=== PATIENT | male | born 1945 | race Caucasian/White ===

== ENCOUNTER 2016-08-07 12:02 | Day surgery (SDC) | payer MEDICARE, OTHER ==
[~2016-08-07] VITALS: Ht 177.8 cm; Wt 91.0 kg
[~2016-08-07 12:02] MED LIST: 0.9% Sodium Chloride 1,000 ML IV SCH; ALFU10TA PO; AMLO10TA3 PO; ASCO100089 PO; ASPI-973 PO; CALC600T12 PO; DESO15CR25 TOP; DOCU240C41 PO; DOXY25TA46 PO; FEXO180T85 PO; FINA5TAB9 PO; FLAX100038 PO; GLUC100016 PO; MELA1TAB11 PO; OMEG-38 PO; SILD100T PO; SIMV20TA4 PO; Sodium Chloride LOK Flush 10 mL Syringe IV PRN; VITA400C64 PO; fentaNYL-PF 50 mCg/mL 2 mL Inj IVPUSH PRN
[2016-08-07 12:42] VITALS: BP 142/80; PULSE 60; RESP 14; O2SAT 97
[2016-08-07 14:23] VITALS: BP 143/89; PULSE 55; O2SAT 96
[2016-08-07 14:33] VITALS: BP 146/75; PULSE 52; O2SAT 95
--- NOTE | 2016-08-07 14:53 | ENDO ---
[address] [address] ENDOSCOPY PROCEDURE PATIENT: JAYME RAYMUNDO : 1945 MR#: [id number] ADMIT: 08/07/2016 JOB ID: [id number] DATE OF SERVICE: 08/07/2016 PROCEDURE: Colonoscopy with hot snare polypectomy. INDICATIONS: A 70-year-old male with a personal history of adenomatous colon polyp, returning for surveillance. EQUIPMENT: [employer]. SEDATION: 1. Versed 3 mg. 2. Fentanyl 50 mcg. COMPLICATIONS: None identified. BOWEL PREPARATION: Adequate. PROCEDURE INFORMATION: After the risks and benefits were explained, written and verbal informed consent was obtained. The patient was brought into the endoscopy suite and placed into the left lateral decubitus position. Sedation was achieved using the above-stated medications with the addition of oxygen via nasal cannula. A digital rectal examination was accomplished. No pathology appreciated. The scope was introduced into the rectum and advanced under direct visualization to the level of the cecum, as identified by the appendiceal orifice and ileocecal valve. The scope was slowly withdrawn to carefully examine the mucosa for any defects or lesions. Multiple direct views were made through the dentate line for exclusion of pathology. The colon was decompressed. The scope removed from the patient who tolerated the procedure well. FINDINGS: In the mid colon there was a sessile, 5 mm polyp, removed with hot snare. No other significant pathology was appreciated throughout. ENDOSCOPIC DIAGNOSIS: Diminutive colon polyp. RECOMMENDATIONS: 1. Await histopathology. 2. Repeat colonoscopy in five years' time, sooner should symptoms warrant.
--- NOTE | 2016-08-09 11:39 | PATH ---
SURGICAL PATHOLOGY Attending Physician:Fidelia Rodriguez CASE STATUS: Signed Out PATIENT NAME: JAYME RAYMUNDO PID: [id number] : 1945 DATE COLLECTED:08/07/2016 00:00 SPECIMEN: Colon, Biopsy CLINICAL HISTORY: A: COLON POLYP FINAL DIAGNOSIS: 1.COLON POLYP: CHANGES CONSISTENT WITH HYPERPLASTIC POLYP. ICD10 CODE K63.5 GROSS DESCRIPTION: The specimen is received in one formalin filled container labeled with the patient's name, sublabeled "colon polyp" and consists of 2 tiny portions of tissue which aggregate to 0.2 x 0.2 x 0.2 CM. The specimen is entirely submitted in one cassette. 08/08/2016 [facility] MICRO DESCRIPTION: See diagnosis. ICD-9 CODES: CPT CODES: 1: 43115 Electronically Signed Out Js Gordillo MD [facility] Pathology [facility] [address] [facility], [place] [address] Technical component performed at [facility], [facility] [address], [place], [address]
== END 2016-08-07 23:59 | disposition home or self-care (01) ==
LOC: END 12:02
PROVIDERS: ATTEND Internal Medicine Gastroenterology
DX: Z12.11 Encounter for screening for malignant neoplasm of colon (principal); Z86.010 Personal history of colon polyps; K63.5 Polyp of colon; I10 Essential (primary) hypertension; E78.5 Hyperlipidemia, unspecified; Z79.82 Long term (current) use of aspirin; N40.1 Benign prostatic hyperplasia with lower urinary tract symptoms
CPT/HCPCS: 45385; 88305; 99153; G0500; J2250; J7030

== ENCOUNTER 2017-03-17 17:33 | Emergency (ER) | payer MEDICARE, OTHER ==
[~2017-03-17 17:33] MED LIST changes: -0.9% Sodium Chloride 1,000 ML IV SCH; -OMEG-38 PO; -Sodium Chloride LOK Flush 10 mL Syringe IV PRN; -fentaNYL-PF 50 mCg/mL 2 mL Inj IVPUSH PRN
[2017-03-17 17:42] VITALS: PULSE 65; RESP 18; O2SAT 97
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
[2017-03-17] MEDS ORDERED: TdaP Vaccine 0.5 mL Inj IM ONE (17:53)
[2017-03-17] MEDS ORDERED: CIPR-198 PO (18:12)
[2017-03-17] MEDS ORDERED: HYDR-4003 PO (18:12)
== END 2017-03-17 18:15 | disposition home or self-care (01) ==
LOC: SED 17:33
DX: S91.112A Laceration without foreign body of left great toe without damage to nail, initial encounter (principal); S91.115A Laceration without foreign body of left lesser toe(s) without damage to nail, initial encounter; M79.675 Pain in left toe(s); W27.0XXA Contact with workbench tool, initial encounter; Y93.89 Activity, other specified; Y92.9 Unspecified place or not applicable; Y99.8 Other external cause status; Z79.82 Long term (current) use of aspirin; Z88.8 Allergy status to other drugs, medicaments and biological substances; Z23 Encounter for immunization